=== PATIENT | female | born 1945 | race Caucasian/White ===

== ENCOUNTER 2020-02-18 13:20 | Observation (INO) | payer MEDICARE, OTHER ==
[2020-02-18 14:05] LABS: CHLORIDE,CL 98 mEq/L (98-106); SODIUM,NA 137 mEq/L (136-145)
[2020-02-18] MEDS ORDERED: Ondansetron 4 MG/2 ML SDV IV PRN (15:21)
[2020-02-18] MEDS ORDERED: Docusate Sodium 100 MG Cap PO PRN (15:21)
[2020-02-18] MEDS ORDERED: Acetaminophen 325 MG Tab PO PRN (15:21)
[2020-02-18] MEDS: Sodium Chloride 0.9% 1,000 ML IV SCH (16:00)
[2020-02-18] MEDS: Metoprolol Tartrate 25 MG Tab PO SCH ×2 (16:00→19:38)
[2020-02-18] MEDS ORDERED: SIMVASTATIN PO SCH (20:00)
[2020-02-18] MEDS ORDERED: EZETIMIBE PO SCH (20:00)
[2020-02-19] MEDS: Sodium Chloride 0.9% 1,000 ML IV SCH (01:09)
[2020-02-19] MEDS: Metoprolol Tartrate 25 MG Tab PO SCH (07:37)
[2020-02-19 07:40] VITALS: BP 149/72; PULSE 65
[2020-02-19 07:44] LABS: CHLORIDE,CL 106 mEq/L (98-106); SODIUM,NA 140 mEq/L (136-145)
[2020-02-19] MEDS ORDERED: Enoxaparin 40 MG/0.4 ML Syringe SUBCUT SCH (08:00)
--- NOTE | 2020-02-20 02:55 | DISCH ---
HISTORY OF PRESENT ILLNESS: Kecia is a 74-year-old female who initially presented to the clinic yesterday with just not feeling well with dizziness and persistent headache for the last couple weeks. She has felt that her blood pressure has been uncontrolled as well. was present and was concerned that it was secondary to lisinopril, as she had similar type of symptoms in the past. She did feel that she just was not feeling well. Was admitted to the hospital, underwent complete laboratory workup that did show CBC to be unremarkable. Cardiac workup was negative. Urinalysis was negative. HOSPITAL COURSE: The patient was started on IV fluids. 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 She has had uneventful hospital stay. This morning, she stated that she is feeling much better. Headache has subsided. States she has had little bit of dizziness with positional changes. Otherwise overall, she is feeling much better. Denies any nausea this morning. Appetite has improved. PHYSICAL EXAMINATION: VITAL SIGNS: Blood pressure is 149/72 with a pulse of 65, temperature 98.2, O2 is 94% to 96% on room air, respiratory rate is 16. GENERAL: Pleasant, cooperative female. She is sitting up in the hospital bed. Does not appear to be in any distress whatsoever. Does appear to be significantly improved today. HEENT: Grossly unremarkable. LUNGS: Clear to auscultation. I do not hear any adventitious sounds. CARDIAC: Regular rate and rhythm. No murmurs were noted. ABDOMEN: Soft, nontender, nondistended. Bowel sounds are present and normoactive. EXTREMITIES: No pedal edema is noted. NEUROLOGIC: Alert and oriented to person, place, and time. Normal cognitive affect. DISCHARGE DIAGNOSIS: 1. PERSISTENT HEADACHE, RESOLVED. 2. UNCONTROLLED HYPERTENSION, IMPROVED. 3. NAUSEA, RESOLVED. 4. DIZZINESS, IMPROVED. HOME MEDICATIONS: Lisinopril has been stopped in the hospital. We will keep her on metoprolol tartrate 25 mg twice a day. We will resume all other home medications. We will start her on meclizine 25 mg t.i.d. p.r.n. as needed for dizziness. FOLLOWUP: morning at 0915 in [place] for blood pressure check. The patient does have an MRI scheduled of the brain for Tuesday at 0130 in the afternoon here in [place]. DISCHARGE DISPOSITION: Home, which the patient is in complete agreement. We will discharge today. CL/IGGY /[id number]
== END 2020-02-19 10:10 | disposition home or self-care (01) ==
LOC: CC.FCMC 13:20 → CC.MS 14:37 → UNDOADMOB 14:37 → CC.MS 15:21
PROVIDERS: ADMIT Physician Assistant Medical; ATTEND Family Medicine
DX: I10 Essential (primary) hypertension (principal); K21.9 Gastro-esophageal reflux disease without esophagitis; E78.5 Hyperlipidemia, unspecified; M85.80 Other specified disorders of bone density and structure, unspecified site; Z88.5 Allergy status to narcotic agent; Z88.8 Allergy status to other drugs, medicaments and biological substances; Z79.899 Other long term (current) drug therapy; Z87.891 Personal history of nicotine dependence
CPT/HCPCS: 36415; 70450; 80048; 80053; 81001; 82550; 84443; 84484; 85025; 85651; 93005; 93010; 93880; 96361; 96372; 96374; 99217; 99220; A9270-GY; G0378; J1650; J2405; J7030

== ENCOUNTER 2020-04-28 15:49 | Observation (INO) | payer MEDICARE, OTHER ==
[2020-04-28] MEDS ORDERED: Sodium Chloride 0.9% 10 ML Syringe FLUSH PRN (17:19)
[2020-04-28] MEDS ORDERED: Ondansetron 4 MG/2 ML SDV IV PRN (17:19)
[2020-04-28] MEDS ORDERED: Ondansetron 4 MG Tab.DIS PO PRN (17:19)
[2020-04-28] MEDS ORDERED: Enoxaparin 40 MG/0.4 ML Syringe SUBCUT SCH (18:00)
[2020-04-28] MEDS: Sodium Chloride 0.9% 1,000 ML IV SCH ×2 (18:23→20:20)
[2020-04-28] MEDS: Acetaminophen 325 MG Tab PO PRN (18:23)
[2020-04-28 20:45] LABS: CHLORIDE,CL 101 mEq/L (98-106); SODIUM,NA 138 mEq/L (136-145)
[2020-04-28] MEDS ORDERED: FEXOFENADINE HCL 180 MG PO PRN (21:08)
[2020-04-28] MEDS ORDERED: Potassium Chloride 10 MEQ Tab.ER PO ONE (21:08)
[2020-04-28] MEDS ORDERED: Acetaminophen 500 MG Tab PO PRN (21:08)
[2020-04-29] MEDS ORDERED: LUTEIN PO SCH (08:00)
[2020-04-29] MEDS ORDERED: [UNRECOGNIZED DRUG - OTHER] PO SCH (08:00)
[2020-04-29] MEDS ORDERED: ZEAXANTHIN PO SCH (08:00)
[2020-04-29 08:36] LABS: CHLORIDE,CL 105 mEq/L (98-106); SODIUM,NA 140 mEq/L (136-145)
--- NOTE | 2020-04-29 08:44 | PCM.PN ---
- General Info Date of Service: 04/29/20 Admission Dx/Problem (Free Text): Covid-19 Weakness Syncopal Episode Subjective Update: Kecia is a 74 yo female who was admitted to the hospital yesterday for Covid-19, weakness, and syncopal episode. Apparently has been having issues with dizziness and occasional syncopal episodes the past few months. Has had extensive workup without identified cause. She presented to the clinic with 5 days of worsening weakness and a syncopal episode and was found to have Covid-19. Questionable syncopal episode due to hypotension so BP medications have been held. She was started on IVF. This morning she reports she only has dizziness upon standing. She continues to feel weak and have cough. Does reports she feels somewhat better in comparison to yesterday. Has been walking around room. Appetite is somewhat decreased. Has been having diarrhea. VS have been stable on RA. She has been afebrile. BP has been normotensive with holding BP medications. Functional Status: Reports: Pain Controlled, Tolerating Diet, Ambulating, Urinating. Denies: New Symptoms - Review of Systems General: Reports: Weakness, Fatigue, Malaise. Denies: Fever, Appetite HEENT: Reports: No Symptoms Pulmonary: Reports: Shortness of Breath (mild), Cough Cardiovascular: Reports: Dyspnea on Exertion, Lightheadedness (upon standing). Denies: Chest Pain Gastrointestinal: Reports: Diarrhea. Denies: Abdominal Pain, Nausea, Vomiting Genitourinary: Reports: No Symptoms Musculoskeletal: Reports: No Symptoms Skin: Reports: No Symptoms Neurological: Reports: No Symptoms Psychiatric: Reports: No Symptoms - Patient Data Vitals - Most Recent: Last Vital Signs Temp 98.5 F 04/29/20 07:49 Pulse 64 04/29/20 07:49 Resp 18 04/29/20 07:49 BP 117/65 04/29/20 07:49 Pulse Ox 92 L 04/29/20 07:49 Weight - Most Recent: 139 lb I&O - Last 24 Hours: Intake & Output 04/28/20 04/29/20 04/29/20 22:59 06:59 14:59 Intake Total 146 Balance 146 Lab Results Last 24 Hours: Laboratory Results - last 24 hr 04/28/20 04/28/20 04/28/20 Range/Units 17:19 17:19 17:19 WBC 6.6 (5.0-10.0) 10^3/uL RBC 4.02 (4.00-5.50) 10^6/uL Hgb 11.6 L (12.0-16.0) g/dL Hct 35.0 L (37.0-47.0) % MCV 87.1 (82.0-94.0) fL MCH 28.9 (27.0-32.0) pg MCHC 33.1 (33.0-38.0) g/dL RDW Coeff of Sharif 13.5 (11.0-15.0) % Plt Count 239 (150-400) 10^3/uL Neut % (Auto) 71.8 (35-85) % Lymph % (Auto) 21.0 (10-55) % [place] % (Auto) 6.8 (0-16) % Eos % (Auto) 0.2 (0-5) % Baso % (Auto) 0.2 (0-3) % Neut # (Auto) 4.72 (1.80-7.00) 10^3/uL Lymph # (Auto) 1.38 (1.00-4.80) 10^3/uL [place] # (Auto) 0.45 (0.00-0.80) 10^3/uL Eos # (Auto) 0.01 (0.00-0.45) 10^3/uL Baso # (Auto) 0.01 10^3/uL PT 10.5 (9.7-12.3) SEC INR 1.04 (0.92-1.18) APTT 25.0 (23.2-32.3) SEC D-Dimer, Quantitative 0.69 H (0.00-0.50) Sodium (136-145) mEq/L Potassium (3.5-5.0) mEq/L Chloride (98-106) mEq/L Carbon Dioxide (21-32) mmol/L BUN (7-18) mg/dL Creatinine (0.6-1.0) mg/dL Est Cr Clr Drug Dosing mL/min Estimated GFR (MDRD) (>=60) mL/min Glucose (75-99) mg/dL Lactic Acid 0.8 (0.4-2.0) mmol/L Calcium (8.4-10.1) mg/dL Total Bilirubin (0.0-1.0) mg/dL AST (15-37) U/L ALT (12-78) U/L Alkaline Phosphatase (46-116) U/L C-Reactive Protein (0.2-0.8) mg/dL Total Protein (6.4-8.2) g/dL Albumin (3.4-5.0) g/dL Urine Color (YELLOW) Urine Appearance (CLEAR) Urine pH (4.5-8.0) Ur Specific [place] (1.003-1.020) Urine Protein (NEGATIVE) mg/dL Urine Glucose (UA) (NEGATIVE) mg/dL Urine Ketones (NEGATIVE) mg/dL Urine Occult Blood (NEGATIVE) Urine Nitrite (NEGATIVE) Urine Bilirubin (NEGATIVE) Urine Urobilinogen (0.2-1.0) EU/dL Ur Leukocyte Esterase (NEGATIVE) 04/28/20 04/28/20 04/29/20 Range/Units 17:19 18:53 05:11 WBC (5.0-10.0) 10^3/uL RBC (4.00-5.50) 10^6/uL Hgb (12.0-16.0) g/dL Hct (37.0-47.0) % MCV (82.0-94.0) fL MCH (27.0-32.0) pg MCHC (33.0-38.0) g/dL RDW Coeff of Sharif (11.0-15.0) % Plt Count (150-400) 10^3/uL Neut % (Auto) (35-85) % Lymph % (Auto) (10-55) % [place] % (Auto) (0-16) % Eos % (Auto) (0-5) % Baso % (Auto) (0-3) % Neut # (Auto) (1.80-7.00) 10^3/uL Lymph # (Auto) (1.00-4.80) 10^3/uL [place] # (Auto) (0.00-0.80) 10^3/uL Eos # (Auto) (0.00-0.45) 10^3/uL Baso # (Auto) 10^3/uL PT (9.7-12.3) SEC INR (0.92-1.18) APTT (23.2-32.3) SEC D-Dimer, Quantitative (0.00-0.50) Sodium 138 140 (136-145) mEq/L Potassium 3.1 L D 3.7 (3.5-5.0) mEq/L Chloride 101 105 (98-106) mEq/L Carbon Dioxide 27 26 (21-32) mmol/L BUN 21 H 16 (7-18) mg/dL Creatinine 0.8 0.7 (0.6-1.0) mg/dL Est Cr Clr Drug Dosing 47.26 54.01 mL/min Estimated GFR (MDRD) > 60 > 60 (>=60) mL/min Glucose 107 H 93 (75-99) mg/dL Lactic Acid (0.4-2.0) mmol/L Calcium 8.7 8.5 (8.4-10.1) mg/dL Total Bilirubin 0.3 0.3 (0.0-1.0) mg/dL AST 21 27 (15-37) U/L ALT 30 32 (12-78) U/L Alkaline Phosphatase 124 H 117 H (46-116) U/L C-Reactive Protein 1.5 H 1.7 H (0.2-0.8) mg/dL Total Protein 6.3 L 6.2 L (6.4-8.2) g/dL Albumin 2.9 L 2.8 L (3.4-5.0) g/dL Urine Color Yellow (YELLOW) Urine Appearance Clear (CLEAR) Urine pH 6.0 (4.5-8.0) Ur Specific [place] 1.020 (1.003-1.020) Urine Protein Negative (NEGATIVE) mg/dL Urine Glucose (UA) Negative (NEGATIVE) mg/dL Urine Ketones 40 H (NEGATIVE) mg/dL Urine Occult Blood Negative (NEGATIVE) Urine Nitrite Negative (NEGATIVE) Urine Bilirubin Negative (NEGATIVE) Urine Urobilinogen 0.2 (0.2-1.0) EU/dL Ur Leukocyte Esterase Negative (NEGATIVE) 04/29/20 Range/Units 07:00 WBC 4.7 L (5.0-10.0) 10^3/uL RBC 3.61 L (4.00-5.50) 10^6/uL Hgb 10.4 L (12.0-16.0) g/dL Hct 32.0 L (37.0-47.0) % MCV 88.6 (82.0-94.0) fL MCH 28.8 (27.0-32.0) pg MCHC 32.5 L (33.0-38.0) g/dL RDW Coeff of Sharif 13.6 (11.0-15.0) % Plt Count 211 (150-400) 10^3/uL Neut % (Auto) 62.1 (35-85) % Lymph % (Auto) 29.3 (10-55) % [place] % (Auto) 8.2 (0-16) % Eos % (Auto) 0.2 (0-5) % Baso % (Auto) 0.2 (0-3) % Neut # (Auto) 2.94 (1.80-7.00) 10^3/uL Lymph # (Auto) 1.39 (1.00-4.80) 10^3/uL [place] # (Auto) 0.39 (0.00-0.80) 10^3/uL Eos # (Auto) 0.01 (0.00-0.45) 10^3/uL Baso # (Auto) 0.01 10^3/uL PT (9.7-12.3) SEC INR (0.92-1.18) APTT (23.2-32.3) SEC D-Dimer, Quantitative (0.00-0.50) Sodium (136-145) mEq/L Potassium (3.5-5.0) mEq/L Chloride (98-106) mEq/L Carbon Dioxide (21-32) mmol/L BUN (7-18) mg/dL Creatinine (0.6-1.0) mg/dL Est Cr Clr Drug Dosing mL/min Estimated GFR (MDRD) (>=60) mL/min Glucose (75-99) mg/dL Lactic Acid (0.4-2.0) mmol/L Calcium (8.4-10.1) mg/dL Total Bilirubin (0.0-1.0) mg/dL AST (15-37) U/L ALT (12-78) U/L Alkaline Phosphatase (46-116) U/L C-Reactive Protein (0.2-0.8) mg/dL Total Protein (6.4-8.2) g/dL Albumin (3.4-5.0) g/dL Urine Color (YELLOW) Urine Appearance (CLEAR) Urine pH (4.5-8.0) Ur Specific [place] (1.003-1.020) Urine Protein (NEGATIVE) mg/dL Urine Glucose (UA) (NEGATIVE) mg/dL Urine Ketones (NEGATIVE) mg/dL Urine Occult Blood (NEGATIVE) Urine Nitrite (NEGATIVE) Urine Bilirubin (NEGATIVE) Urine Urobilinogen (0.2-1.0) EU/dL Ur Leukocyte Esterase (NEGATIVE) Med Orders - Current: Current Medications Acetaminophen (Tylenol) 650 mg PO Q4H PRN PRN Reason: Pain (Mild 1-3)/fever Last Admin: 04/28/20 18:23 Dose: 650 mg Documented by: Acetaminophen (Tylenol Extra Strength) 1,000 mg PO DAILY PRN PRN Reason: Pain/Fever Cholecalciferol (Vitamin D3) 25 mcg PO DAILY [facility] Enoxaparin Sodium (Lovenox) 40 mg SUBCUT Q24H [facility] Last Admin: 04/28/20 21:59 Dose: 40 mg Documented by: Sodium Chloride (Normal Saline) 1,000 mls @ 75 mls/hr IV ASDIRECTED [facility] Last Admin: 04/28/20 20:20 Dose: 75 mls/hr Documented by: Magnesium Oxide (Magnesium Oxide) 250 mg PO BID [facility] Metoprolol Tartrate (Lopressor) 25 mg PO BID [facility] Non-Formulary Medication (Calc/D3/Mag/Zn/Jia/Matt/[place] [Calcium 600 Mg Plus Vit D]) 1 each PO BID [facility] Non-Formulary Medication (Ezetimibe/Simvastatin [Vytorin 10-20 Mg Tablet]) 1 tab PO BEDTIME [facility] Non-Formulary Medication (Fexofenadine Hcl [Fexofenadine Hcl]) 180 mg PO DAILY PRN PRN Reason: Other Non-Formulary Medication (Lutein/Zeaxanthin [Lutein-Zeaxanthin 25-5 Mg Sfgl]) 1 each PO DAILY [facility] Non-Formulary Medication (Meclizine [Antivert]) 25 mg PO TID PRN PRN Reason: Dizziness Ondansetron HCl (Zofran Odt) 4 mg PO Q4H PRN PRN Reason: nausea, able to take PO Ondansetron HCl (Zofran) 4 mg IV Q4H PRN PRN Reason: Nausea/Vomiting Sodium Chloride (Saline Flush) 10 ml FLUSH ASDIRECTED PRN PRN Reason: Keep Vein Open Discontinued Medications Potassium Chloride (Klor-Con 10) 40 meq PO ONETIME ONE Stop: 04/28/20 21:09 Last Admin: 04/28/20 22:00 Dose: 40 meq Documented by: - Exam Quality Assessment: DVT Prophylaxis. No: Supplemental Oxygen General: Alert, Oriented HEENT: Pupils Equal, Pupils Reactive, EOMI, Mucous Membr. Moist/[place] Neck: Supple Lungs: Clear to Auscultation, Normal Respiratory Effort Cardiovascular: Regular Rate, Regular Rhythm GI/Abdominal Exam: Normal Bowel Sounds, Soft, Non-Tender, No Organomegaly, No Distention, No Abnormal Bruit, No Mass, Pelvis Stable Extremities: Normal Inspection, Normal Range of Motion, Non-Tender, No Pedal Edema, Normal Capillary Refill Neurological: No New Focal Deficit Psy/Mental Status: Alert, Normal Affect, Normal Mood Sepsis Event Note - Evaluation Sepsis Screening Result: No Definite Risk - Focused Exam Vital Signs: Vital Signs Temp Pulse Resp BP Pulse Ox 04/29/20 07:49 98.5 F 64 18 117/65 92 L 04/29/20 04:00 96.5 F L 68 16 117/59 L 95 04/28/20 23:57 98.5 F 71 18 144/62 H 95 - Problem List & Annotations (1) COVID-19 SNOMED Code(s): 376349704 Code(s): U07.1 - COVID-19 Status: Acute Current Visit: Yes (2) Weakness SNOMED Code(s): 55169985 Code(s): R53.1 - WEAKNESS Status: Acute Current Visit: Yes (3) Syncope SNOMED Code(s): 024376836 Code(s): R55 - SYNCOPE AND COLLAPSE Status: Acute Current Visit: No Onset Date: 01/14/14 - Problem List Review Problem List Initiated/Reviewed/Updated: Yes - My Orders Last 24 Hours: My Active Orders 04/28/20 21:08 Acetaminophen [Tylenol Extra Strength] 1,000 mg PO DAILY PRN Fexofenadine HCl [Fexofenadine HCl] 180 mg PO DAILY PRN Meclizine [Antivert] 25 mg PO TID PRN 04/28/20 21:15 Metoprolol Tartrate [Lopressor] 25 mg PO BID 04/29/20 08:00 Calc/D3/Mag/Zn/Jia/Matt/[place] [Calcium 600 MG Plus Vit D] 1 each PO BID Lutein/Zeaxanthin [Lutein-Zeaxanthin 25-5 mg Sfgl] 1 each PO DAILY 04/29/20 20:00 Ezetimibe/Simvastatin [Vytorin 10-20 mg Tablet] 1 tab PO BEDTIME Magnesium Oxide 250 mg PO BID 04/30/20 08:00 Cholecalciferol (Vitamin D3) [Vitamin D3] 25 mcg PO DAILY - Assessment Assessment:: Covid-19 Weakness Syncopal Episode - Plan Plan:: Patient has had no syncopal episodes. Does have dizziness upon standing. BP has been normotensive despite holding BP medications. Telemetry has been NSR. VSS on RA. Potassium was low. Did get 40 meq KCL. K improved to 3.7 today. Will continue cautiously with IVF as patient continues to have diarrhea. Anticipate discharge home in am.
[2020-04-29] MEDS ORDERED: Meclizine 12.5 MG Tab PO PRN (09:11)
[2020-04-29] MEDS: Metoprolol Tartrate 25 MG Tab PO SCH (09:15)
[2020-04-29] MEDS: Acetaminophen 325 MG Tab PO PRN (16:11)
[2020-04-29] MEDS: Calcium Carbonate/Magnesium Oxide/Zinc Oxide Tab PO SCH (19:45)
[2020-04-29] MEDS ORDERED: SIMVASTATIN PO SCH (20:00)
[2020-04-29] MEDS ORDERED: Enoxaparin 40 MG/0.4 ML Syringe SUBCUT SCH (20:00)
[2020-04-29] MEDS ORDERED: EZETIMIBE PO SCH (20:00)
[2020-04-30 07:50] LABS: CHLORIDE,CL 104 mEq/L (98-106); SODIUM,NA 140 mEq/L (136-145)
[2020-04-30] MEDS: Calcium Carbonate/Magnesium Oxide/Zinc Oxide Tab PO SCH (07:58)
[2020-04-30] MEDS ORDERED: Cholecalciferol (Vitamin D3) 25 MCG Tab PO SCH (08:00)
[2020-04-30 09:20] VITALS: BP 116/66; PULSE 65
--- NOTE | 2020-04-30 10:49 | PCM.DCSUM1 ---
Discharge Summary - Discharge Data Discharge Date: 04/30/20 Discharge Disposition: Home, Self-Care 01 Condition: Good - Referral to Home Health Primary Care Physician: AKIRA Camacho - Discharge Diagnosis/Problem(s) (1) COVID-19 SNOMED Code(s): 024410953 ICD Code: U07.1 - COVID-19 Status: Acute Current Visit: Yes (2) Weakness SNOMED Code(s): 31079524 ICD Code: R53.1 - WEAKNESS Status: Acute Current Visit: Yes (3) Syncope SNOMED Code(s): 616286925 ICD Code: R55 - SYNCOPE AND COLLAPSE Status: Acute Current Visit: No Onset Date: 01/14/14 - Discharge Plan Home Medications: Home Meds Calc/D3/Mag/Zn/Jia/Matt/[place] [Calcium 600 MG Plus Vit D] 1 each PO BID 01/14/14 [History] Ezetimibe/Simvastatin [Vytorin 10-20 mg Tablet] 1 tab PO BEDTIME 01/14/14 [History] Fexofenadine HCl 180 mg PO DAILY PRN 01/14/14 [History] Lutein/Zeaxanthin [Lutein-Zeaxanthin 25-5 mg Sfgl] 1 each PO DAILY 01/14/14 [History] Magnesium Oxide [Magnesium] 250 mg PO BID 01/14/14 [History] Ubidecarenone [Coq-10] 100 mg PO DAILY 01/14/14 [History] Acetaminophen [Tylenol Extra Strength] 1,000 mg PO DAILY PRN 02/18/20 [History] Betamethasone Dipropionate [Diprosone 0.05% Lotion] 1 applic TOP ASDIRECTED 02/18/20 [History] Cholecalciferol (Vitamin D3) [Vitamin D3] 1,000 units PO DAILY 02/18/20 [History] Ketoconazole [Nizoral 2% Shampoo] 1 applic TOP ASDIRECTED 02/18/20 [History] Krill Oil 1 cap PO DAILY 02/18/20 [History] Meclizine [Antivert] 25 mg PO TID PRN #12 tab 02/19/20 [Rx] Metoprolol Tartrate [Lopressor] 25 mg PO BID #60 tablet 02/19/20 [Rx] - Patient Data Vitals - Most Recent: Last Vital Signs Temp 98.3 F 04/30/20 08:00 Pulse 65 04/30/20 08:00 Resp 18 04/30/20 08:00 BP 116/66 04/30/20 08:00 Pulse Ox 96 04/30/20 08:00 Weight - Most Recent: 139 lb Lab Results - Last 24 hrs: Laboratory Results - last 24 hr 04/28/20 04/30/20 04/30/20 Range/Units 18:53 07:00 07:00 WBC 4.6 L (5.0-10.0) 10^3/uL RBC 4.16 (4.00-5.50) 10^6/uL Hgb 11.8 L (12.0-16.0) g/dL Hct 37.0 (37.0-47.0) % MCV 88.9 (82.0-94.0) fL MCH 28.4 (27.0-32.0) pg MCHC 31.9 L (33.0-38.0) g/dL RDW Coeff of Sharif 13.7 (11.0-15.0) % Plt Count 251 (150-400) 10^3/uL Neut % (Auto) 44.3 (35-85) % Lymph % (Auto) 45.0 (10-55) % [place] % (Auto) 9.6 (0-16) % Eos % (Auto) 0.9 (0-5) % Baso % (Auto) 0.2 (0-3) % Neut # (Auto) 2.04 (1.80-7.00) 10^3/uL Lymph # (Auto) 2.07 (1.00-4.80) 10^3/uL [place] # (Auto) 0.44 (0.00-0.80) 10^3/uL Eos # (Auto) 0.04 (0.00-0.45) 10^3/uL Baso # (Auto) 0.01 10^3/uL Sodium 140 (136-145) mEq/L Potassium 3.9 (3.5-5.0) mEq/L Chloride 104 (98-106) mEq/L Carbon Dioxide 28 (21-32) mmol/L BUN 15 (7-18) mg/dL Creatinine 0.8 (0.6-1.0) mg/dL Est Cr Clr Drug Dosing 47.26 mL/min Estimated GFR (MDRD) > 60 (>=60) mL/min Glucose 90 (75-99) mg/dL Calcium 8.9 (8.4-10.1) mg/dL C-Reactive Protein 1.1 H (0.2-0.8) mg/dL Urine RBC Not seen (0-5) /HPF Urine WBC Not seen (0-5) /HPF Med Orders - Current: Current Medications Acetaminophen (Tylenol) 650 mg PO Q4H PRN PRN Reason: Pain (Mild 1-3)/fever Last Admin: 04/29/20 16:11 Dose: 650 mg Documented by: Acetaminophen (Tylenol Extra Strength) 1,000 mg PO DAILY PRN PRN Reason: Pain/Fever Calcium/Magnesium/Zinc (Calcium & Magnesium Plus Zinc) 1 tab PO BID [facility] Last Admin: 04/30/20 07:58 Dose: 1 tab Documented by: Cholecalciferol (Vitamin D3) 25 mcg PO DAILY [facility] Last Admin: 04/30/20 07:58 Dose: 25 mcg Documented by: Enoxaparin Sodium (Lovenox) 40 mg SUBCUT BEDTIME [facility] Last Admin: 04/29/20 19:45 Dose: 40 mg Documented by: Sodium Chloride (Normal Saline) 1,000 mls @ 75 mls/hr IV ASDIRECTED [facility] Last Admin: 04/28/20 20:20 Dose: 75 mls/hr Documented by: Magnesium Oxide (Magnesium Oxide) 250 mg PO BID [facility] Last Admin: 04/30/20 07:58 Dose: 250 mg Documented by: Meclizine HCl (Antivert) 25 mg PO TID PRN PRN Reason: Dizziness Ondansetron HCl (Zofran Odt) 4 mg PO Q4H PRN PRN Reason: nausea, able to take PO Ondansetron HCl (Zofran) 4 mg IV Q4H PRN PRN Reason: Nausea/Vomiting Ezetimibe/Simvastatin 10/20 Mg Tab Ptom 0 each PO BEDTIME [facility] Last Admin: 04/29/20 19:47 Dose: 1 each Documented by: Sodium Chloride (Saline Flush) 10 ml FLUSH ASDIRECTED PRN PRN Reason: Keep Vein Open Discontinued Medications Enoxaparin Sodium (Lovenox) 40 mg SUBCUT Q24H [facility] Last Admin: 04/28/20 21:59 Dose: 40 mg Documented by: Metoprolol Tartrate (Lopressor) 25 mg PO BID [facility] Last Admin: 04/29/20 09:15 Dose: Not Given Documented by: Non-Formulary Medication (Fexofenadine Hcl [Fexofenadine Hcl]) 180 mg PO DAILY PRN PRN Reason: Other Non-Formulary Medication (Lutein/Zeaxanthin [Lutein-Zeaxanthin 25-5 Mg Sfgl]) 1 each PO DAILY [facility] Last Admin: 04/29/20 11:34 Dose: Not Given Documented by: Potassium Chloride (Klor-Con 10) 40 meq PO ONETIME ONE Stop: 04/28/20 21:09 Last Admin: 04/28/20 22:00 Dose: 40 meq Documented by:
== END 2020-04-30 12:15 | disposition home or self-care (01) ==
LOC: UNDOADMOB 16:23 → CC.MS 16:23
PROVIDERS: ADMIT Physician Assistant Medical; ATTEND Family Medicine
DX: R55 Syncope and collapse (principal); U07.1 COVID-19; Z88.8 Allergy status to other drugs, medicaments and biological substances; Z88.5 Allergy status to narcotic agent; Z79.899 Other long term (current) drug therapy
CPT/HCPCS: 36415; 71046; 80048; 80053; 81001; 83605; 85025; 85379; 85610; 85730; 86140; 96360; 96361; 96372; 99217; 99220; 99225; A9270; G0378; J1650; J7030

== ENCOUNTER → 2020-10-24 | Day surgery (SDC) | payer MEDICARE, OTHER ==
[~2020-10-24] MED LIST: Lactated Ringers 1,000 ML IV SCH
[2020-10-24 09:22] VITALS: BP 152/67; PULSE 59
--- NOTE | 2020-10-24 12:27 | OR ---
DATE OF OPERATION: 10/24/2020 PREOPERATIVE DIAGNOSIS: POSITIVE COLOGUARD. POSTOPERATIVE DIAGNOSIS: POSITIVE COLOGUARD. SURGEON: Sergio Hebert MD PROCEDURE: INCOMPLETE COLONOSCOPY TO 35 CM. ANESTHESIA: MAC. COMPLICATIONS: None. SPECIMEN: None. FINDINGS: 1. Incomplete colonoscopy to 35 cm. 2. Prominent diverticulosis. RECOMMENDATIONS: Recommend GI consultation. INDICATIONS: The patient has recent positive Cologuard. She has had an incomplete scope approximately 10 years ago and had done, I believe, barium enemas a few times for colon cancer surveillance. She has recently had a positive Cologuard and was sent for an attempted scope. DESCRIPTION OF PROCEDURE: The patient was prepped and draped, placed in the left lateral decubitus position. A lubricated Olympus colonoscope was inserted and advanced immediately into the sigmoid region. The patient has significant diverticular disease. She is very tortuous, and I suspect has some adhesions as her colon is very fixed. We traversed a few difficult turns and got to a turn around 35 cm and just could not get the scope to advance. There was a lot of diverticula there and due to the amount of pressure, we elected to stop for safety reasons. We did attempt to put her into 2 to 3 different positions as well to traverse this and just could not from that point distally. No obvious lesions were seen other than her diverticula. Air was suctioned. Scope was removed without any complications. BETO/IGGY /[id number]
== END ==
LOC: CC.SDS 07:14
PROVIDERS: ATTEND Family Medicine
DX: K57.30 Diverticulosis of large intestine without perforation or abscess without bleeding (principal); I10 Essential (primary) hypertension; E78.5 Hyperlipidemia, unspecified; K21.9 Gastro-esophageal reflux disease without esophagitis; Z88.8 Allergy status to other drugs, medicaments and biological substances; Z88.5 Allergy status to narcotic agent; Z79.899 Other long term (current) drug therapy; Z90.49 Acquired absence of other specified parts of digestive tract; Z87.891 Personal history of nicotine dependence
CPT/HCPCS: 00811; J7120

== ENCOUNTER 2023-01-26 12:27 | Observation (INO) | payer MEDICARE, OTHER ==
[2023-01-26 13:07] LABS: BASOPHILS ABSOLUTE AUTO 0.03 10^3/uL (0.00-0.50); BASOPHILS PERCENT AUTO 0.4 % (0-1); EOSINOPHILS ABSOLUTE AUTO 0.08 10^3/uL (0.00-1.50); HEMATOCRIT 42.6 % (37.0-47.0); HEMOGLOBIN 14.1 g/dL (12.0-16.0); IMMATURE GRAN ABSOLUTE AUTO 0.01 10^3/uL (0.00-0.49); IMMATURE GRAN PERCENT AUTO 0.1 % (0.0-4.9); LYMPHOCYTES ABSOLUTE AUTO 1.93 10^3/uL (0.60-5.00); LYMPHOCYTES PERCENT AUTO 24.4 % (24-44); MEAN CORPUSCULAR HEMOGLOBIN 29.1 pg (27.0-32.0); MEAN CORPUSCULAR HGB CONC 33.1 g/dL (32.0-36.0); MONOCYTES ABSOLUTE AUTO 0.44 10^3/uL (0.00-1.50); MONOCYTES PERCENT AUTO 5.6 % (0-10); NEUTROPHILS ABSOLUTE AUTO 5.43 x10^3/uL (1.80-8.00); NEUTROPHILS PERCENT AUTO 68.5 % (41-71); PLATELET COUNT,PLT 254 10^3/uL (150-400); RED BLOOD CELL COUNT 4.84 x10^6/uL (4.00-5.50); WHITE BLOOD CELL COUNT,WBC 7.9 10^3/uL (4.0-11.0)
[2023-01-26] MEDS ORDERED: cloNIDine 0.1 MG Tab PO ONE (13:15)
[2023-01-26 13:25] LABS: ALANINE AMINOTRANSFERASE,ALT 28 U/L (12-78); ALBUMIN 4.3 g/dL (3.4-5.0); ALKALINE PHOSPHATASE 122 U/L (46-116); ASPARTATE AMNIOTRANSFERASE,AST 18 U/L (15-37); BILIRUBIN TOTAL 0.6 mg/dL (0.0-1.0); BLOOD UREA NITROGEN,BUN 21 mg/dL (7-18); CALCIUM 10.4 mg/dL (8.4-10.1); CARBON DIOXIDE,CO2 29 mmol/L (21-32); CHLORIDE,CL 101 mEq/L (98-106); CREATINE KINASE,CK 39 U/L (21-215); CREATININE 0.9 mg/dL (0.6-1.0); GLUCOSE RANDOM 108 mg/dL (75-99); MAGNESIUM 2.2 mg/dL (1.8-2.4); PROTEIN TOTAL,TP 7.8 g/dL (6.4-8.2); SODIUM,NA 141 mEq/L (136-145)
[2023-01-26 13:29] LABS: ESTIMATED GFR 66 mL/min (>=60)
[2023-01-26] MEDS ORDERED: Sodium Chloride 0.9% 250 ML IV ONE (15:49)
[2023-01-26] MEDS ORDERED: Non-Formulary Medication 1 Each (Clobetasol [Clobetasol Propionate 0.05% Cream] 15 GM Tube VAG PRN (17:03)
[2023-01-26] MEDS ORDERED: Acetaminophen 325 MG Tab PO PRN (17:09)
[2023-01-26] MEDS ORDERED: BETAMETHASONE DIPROPIONATE TOP SCH (17:15)
[2023-01-26] MEDS ORDERED: Non-Formulary Medication 1 Each (Ketoconazole [Nizoral 2% Shampoo] 120 ML Bottle) TOP SCH (17:15)
[2023-01-26] MEDS ORDERED: PRED MOXI KETOR EYEBOTH SCH (17:15)
[2023-01-26] MEDS ORDERED: Heparin Sodium 5,000 Units/ML Vial SUBCUT SCH (18:00)
[2023-01-26] MEDS: Sodium Chloride 0.9% 1,000 ML IV SCH (19:37)
[2023-01-26] MEDS ORDERED: Simvastatin 20 MG Tab PO SCH (20:00)
[2023-01-26] MEDS ORDERED: Ezetimibe 10 MG Tab PO SCH (20:00)
[2023-01-27] MEDS: Sodium Chloride 0.9% 1,000 ML IV SCH (07:25)
[2023-01-27] MEDS ORDERED: Multivitamin Tab PO SCH (08:00)
[2023-01-27] MEDS ORDERED: Calcium Carbonate 500 MG Tab.Chew PO SCH (08:00)
[2023-01-27] MEDS ORDERED: LUTEIN PO SCH (08:00)
[2023-01-27] MEDS ORDERED: Lisinopril 10 MG Tab PO SCH (08:00)
[2023-01-27] MEDS ORDERED: ZEAXANTHIN PO SCH (08:00)
[2023-01-27] MEDS ORDERED: [UNRECOGNIZED DRUG - OTHER] PO SCH (08:00)
[2023-01-27] MEDS ORDERED: Heparin Sodium 5,000 Units/ML Vial SUBCUT SCH (08:00)
[2023-01-27] MEDS ORDERED: Iopamidol 755 Mg/ML 100 ML Bottle IVPUSH ONE (08:05)
[2023-01-27 08:24] VITALS: PULSE 58
[2023-01-27 11:34] VITALS: BP 134/53
== END 2023-01-27 11:47 | disposition home or self-care (01) ==
LOC: CC.FCMC 12:27 → CC.ACU 12:27 → UNDOADMOB 16:55 → CC.MS 16:55
PROVIDERS: ADMIT Physician Assistant Medical; ATTEND Physician Assistant Medical
DX: I16.0 Hypertensive urgency (principal); I10 Essential (primary) hypertension; E78.00 Pure hypercholesterolemia, unspecified; K21.9 Gastro-esophageal reflux disease without esophagitis; M19.90 Unspecified osteoarthritis, unspecified site; M85.80 Other specified disorders of bone density and structure, unspecified site; Z90.49 Acquired absence of other specified parts of digestive tract; Z98.890 Other specified postprocedural states; Z90.710 Acquired absence of both cervix and uterus; Z88.5 Allergy status to narcotic agent; Z88.8 Allergy status to other drugs, medicaments and biological substances; Z79.899 Other long term (current) drug therapy; Z87.891 Personal history of nicotine dependence
CPT/HCPCS: 36415; 70496; 70498; 80053; 82550; 83605; 83735; 84484; 85025; 93005; 93010; 93880; 96372; 99223; 99239; A9270-GY; G0378; J1644; J7030; J7040; Q9967